=== PATIENT | female | born 1995 | race African-American/Black ===

== ENCOUNTER 2016-05-30 15:39 | Outpatient (CLI) | payer OTHER ==
--- NOTE | 2016-05-30 16:37 | DI ---
EXAM: Two x-rays of the chest. Comparison: None available. Reason for exam: Positive TB skin test. FINDINGS: No pneumothorax, pleural effusion, or focal consolidation. The cardiac silhouette is not enlarged. The imaged osseous structures are unremarkable. Impression: 1. No acute cardiopulmonary process. 2. No radiographic evidence of active tubercular disease.
== END 2016-05-30 15:40 | disposition home or self-care (01) ==
LOC: RAD 15:39
PROVIDERS: ATTEND Family Medicine
DX: R76.11 Nonspecific reaction to tuberculin skin test without active tuberculosis (principal)

== ENCOUNTER 2016-06-11 10:10 | Outpatient (CLI) ==
[2016-06-11 13:26] LABS: BASOPHILS # (AUTO) 0.1 K/uL (0-0.2); BASOPHILS % (AUTO) 0.5 % (0.0-3.0); EOSINOPHILS # (AUTO) 0.1 K/ul (0.0-0.7); EOSINOPHILS % (AUTO) 0.9 % (0.0-7.0); HEMATOCRIT 35.6 % (37.0-47.0); HEMOGLOBIN 11.8 g/dl (12.0-16.0); IMMATURE GRANULOCYTE % (AUTO) 0.4 % (0.0-5.0); LYMPHOCYTES # (AUTO) 1.5 K/uL (0.60-3.4); LYMPHOCYTES % (AUTO) 13.6 (10.0-50.0); MEAN CORPUSCULAR HEMOGLOBIN 28.8 pg (27.0-31.0); MEAN CORPUSCULAR HGB CONC 33.1 (31.8-35.4); MEAN CORPUSCULAR VOLUME 86.8 fl (81.0-99.0); MONOCYTES # (AUTO) 0.7 K/uL (0.4-2.0); MONOCYTES % (AUTO) 6.7 (0-10); NEUTROPHILS # (AUTO) 8.4 K/ul (2.0-6.9); NEUTROPHILS % (AUTO) 77.9; PLATELET COUNT 239 10^3/uL (140-440); WHITE BLOOD COUNT 10.78 K/ul (4.6-10.2)
[2016-06-11 14:07] LABS: ALBUMIN 3.4 g/dL (3.4-5.0); ALBUMIN/GLOBULIN RATIO 0.83; ANION GAP 12.5; BILIRUBIN,TOTAL 0.32 mg/dL (0.00-1.20); BUN/CREATININE RATIO 9.33; CALCIUM 8.8 mg/dL (8.2-10.2); CREATININE 0.75 mg/dL (0.60-1.30); POTASSIUM 3.5 mmol/L (3.5-5.10); TOTAL PROTEIN 7.5 g/dL (6.4-8.2)
== END 2016-06-11 10:11 | disposition home or self-care (01) ==
LOC: LAB 10:10
PROVIDERS: ATTEND Nurse Practitioner Family
DX: R76.11 Nonspecific reaction to tuberculin skin test without active tuberculosis (principal)
CPT/HCPCS: 36415; 80053; 85025